=== PATIENT | female | born 1995 | race Caucasian/White ===

== ENCOUNTER 2016-12-31 05:13 | Observation (INO) ==
--- NOTE | 2016-12-31 05:24 | OB/GYN History & Physical ---
Date of Encounter: 12/31/16 Time of Encounter: 05:23 Assessment and Plan (1) False labor Current visit: Yes Status: Acute Patient began experiencing contractions after sexual intercourse which is likely the cause of her false labor. Nitrazine test was negative. Unlikely, ROM. Semen noted in the vaginal vault. Cervix dilated to 3, 20%,-3. No active labor noted. Pt reports contractions to be 5 minutes apart. We will continue to monitor for progression. Likely discharge home. Educated patient to abstain from vigorous sexual activity to prevent contractions and possible induction. Pelvic Rest. (2) Vaginal discharge during in third trimester Current visit: Yes Status: Acute Physical examination demonstrated semen in the vaginal vault. Nitralazine test was negative for ferning and no rupture of membranes at this time. Vaginal discharge likely due to semen deposited from earlier sexual activity. Pelvic rest. (3) 38 weeks gestation of Current visit: Yes Status: Acute Continue with daily vitamins, aspirin as indicated for antithrombin III deficiency. Pelvis Rest Return for planned induction on 01/06/17. History of Present Illness Chief complaint: za carmona HPI: Ms. 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 Pt reports that this morning around 03:30 she got up to use the rest room. Afterward as she was walking back to her room she felt a "gooey, slimy substance fall out of her vagina into her underwear. When she looked it was "clearish" appearing with scant blood streak. Pt reports that last sexual intercourse occurred 1 -2 hours prior. Shortly after using restroom pt began having contractions she reports 5 minutes apart. Patient is seen regularly for routine OB appointments. Pt reports she was seen yesterday by Dr Boo; membranes stripped and cervix reported to be dilated at 3. Blood type: O+ GBS negative on 12/27/16 Rubella IgG antibody positive Hepatitis B surface antigen: Nonreactive Treponema pallidum negative Varicella antibody positive Remote history of chlamydia 10/08/12. Past Med Surg Social Fam HX - Past Medical History Medical history: asthma, migraine, other (Antithrombin III deficiency) Psychiatric history: anxiety, depression - Past Surgical History Surgical History: orthopedic, other (Right ACL repair, many discectomy) - Social History Smoking Status: Current every day smoker Smokeless Tobacco Status: No Alcohol use: none Drug use: none Obstetrical History - Pregnancies : 3 Para: 1 Term: 1 : 0 Ab's: 1 Livin - History/Complications History/Complications: October 2012 patient underwent a D&C for missed . Treated for pelvic inflammatory disease June 2013. Positive for chlamydia. Medications and Allergies Aspirin 81 mg PO DAILY 07/02/15 [History] Vit/Iron Fumarate/FA [ Tablet] 1 tab PO DAILY 12/31/16 [History ] Allergies amphetamine [From Adderall] Allergy (Verified 12/31/16 05:25) Hives Carbinoxamine [From Rondec] Allergy (Verified 12/31/16 05:25) Rash cephalexin [From Keflex] Allergy (Verified 12/31/16 05:25) Swelling of Lip/Tongue/Throat dextroamphetamine [From Adderall] Allergy (Verified 12/31/16 05:25) Hives diphenhydramine [From Benadryl] Allergy (Verified 12/31/16 05:25) Agitated Penicillins [PCN] Allergy (Verified 12/31/16 05:25) Anaphylaxis pseudoephedrine [From Rondec] Allergy (Verified 12/31/16 05:25) Rash Review of System OB - Constitutional Constitutional ROS IM: no chills, no fever(s), no weakness - Nose, mouth, and throat Nose, mouth and throat: nasal congestion, other (cough productive of clear phlegm), no abnormal hearing - Breasts Breasts: no change in shape - Cardiovascular Cardiovascular: no chest pain at rest, no edema, no leg edema, no lightheadedness, no orthopnea, no palpitations, no paroxysmal nocturnal dyspnea , no pedal edema, no syncope - Respiratory Respiratory: cough - Gastrointestinal Gastrointestinal: cramping, no abdominal pain, no bloating, no hematemesis, no vomiting - Menstruation Menstruation: other (28 day cycles regular 5 days menses) - Muscloskeletal Musculoskeletal: no abnormal gait, no joint swelling, no stiffness, no tingling - Integumentary Integumentary: no bleeding lesions, no pruritus, no rash, no sores - Neurological Nerological: no abnormal gait, no abnormal hearing, no abnormal movements, no dizziness, no lack of coordination, no loss of vision, no vertigo - Psychiatric Psychiatric: abnormal sleep pattern (difficulty falling asleep), no anxiety, no depression, no memory loss - Endocrine Endocrine: no cold intolerance, no deeping of the voice, no heat intolerance - Hematologic/Lymphatic Hematologic/Lymphatic: other (Thrombophilia: Factor 3 deficiency) Exam - Constitutional Constitutional: well developed, well nourished, no acute distress, average body habitus - HEENT HEENT: EOMI, PERRL, Normocephaly, Mucus Membranes Moist - Neck Neck exam: full ROM, normal inspection, supple, trachea midline - Lungs Respiratory exam: CTAB (transmitted upper airway sounds. Pt coughing on exam. ) - Cardiovascular Cardiovascular exam: +S1, +S2 - Abdomen Abdomen: Present: bowel sounds normal, gravid, non tender - Extremities Extremities exam: full ROM, normal capillary refill, normal inspection, warm, radial pulses palpable and symetrical Deep Tendon Reflex Grade: 2+ Normal - Vulva Vulva: bilateral: normal - Vagina Vagina: Present: normal moisture, discharge (semen) - Cervix Dilation: 3 - Uterus Uterus exam: Present: normal size, normal contour - Anus/Rectum Anus/Rectum: Present: normal perianal skin Results All other labs normal.
== END 2016-12-31 09:27 | disposition home or self-care (01) ==
LOC: 1NENULAB
PROVIDERS: ADMIT Obstetrics & Gynecology; ATTEND Obstetrics & Gynecology

== ENCOUNTER 2017-01-06 06:08 | Inpatient (IN) ==
[2017-01-06] MEDS ORDERED: Naloxone 0.4 MG/ML INJ IVP PRN (06:27)
[2017-01-06] MEDS ORDERED: Famotidine 20 MG/2 ML VIAL IVP PRN (06:27)
[2017-01-06] MEDS ORDERED: Metoclopramide 10 MG/2 ML VIAL IVP PRN (06:27)
[2017-01-06] MEDS ORDERED: Ringers Solution, Lactated 1,000 ML IVC SCH (06:30)
[2017-01-06 06:46] LABS: Basophils # 0.1 K/mcL (0.0-0.2); Basophils % 0.6 %; Eosinophils # 0.1 K/mcL (0.0-0.6); Eosinophils % 0.6 %; Hematocrit 38.4 % (35.3-44.9); Immature Granulocytes % 1.6 % (0-4); Lymphocytes # 4.8 K/mcL (0.6-4.6); Lymphocytes % 24.1 %; Mean Corpuscular HGB Conc 33.9 g/dL (31.6-35.5); Mean Corpuscular Hemoglobin 29.5 pg (28.0-33.3); Mean Corpuscular Volume 87.3 fL (83.0-100.0); Mean Platelet Volume 10.2 fL (9.4-12.4); Monocytes # 0.8 K/mcL (0.0-1.3); Neutrophils # 13.7 K/mcL (1.6-8.9); Platelet Count 342 K/mcL (140-400); Red Cell Distribution Width 12.7 % (11.5-14.5); Segmented Neutrophils % 69.1 %
--- NOTE | 2017-01-06 07:36 | Anesthesia Evaluation PreOp ---
Date of Encounter: 01/06/17 Time of Encounter: 07:21 - Past History Planned Operation: vaginal del, 39wk induction. Cardiac History: HTN (questionable RN reported, denied) Pulmonary History: Asthma [employer] History: Other (anxiety, panic disorders, migraines, PTSD,) Other Medical History: Other (FACTOR 3 DEF. on baby ASA QD. no previous blood clot and denied any symptoms of SOB, lower leg swelling, very active according to patient) Anesthesia History: No Prior Anesthetic Complications (previous epidural with [facility]), Past Anesthesia : Yes (39wks) Alcohol Use: none Drug use: none Medications and Allergies Aspirin 81 mg PO DAILY 07/02/15 [History] Vit/Iron Fumarate/FA [ Tablet] 1 tab PO DAILY 12/31/16 [History ] Allergies amphetamine [From Adderall] Allergy (Verified 12/31/16 05:25) Hives Carbinoxamine [From Rondec] Allergy (Verified 12/31/16 05:25) Rash cephalexin [From Keflex] Allergy (Verified 12/31/16 05:25) Swelling of Lip/Tongue/Throat dextroamphetamine [From Adderall] Allergy (Verified 12/31/16 05:25) Hives diphenhydramine [From Benadryl] Allergy (Verified 12/31/16 05:25) Agitated Penicillins [PCN] Allergy (Verified 12/31/16 05:25) Anaphylaxis pseudoephedrine [From Rondec] Allergy (Verified 12/31/16 05:25) Rash Anesthesia Results - Labs 01/06/17 06:30 Anesthesia Exam - HEENT Pupil (Motor): Pupils equal Mallampati: II Teeth: Normal Oral Opening: Greater than 3 - [employer] LOC: Oriented [employer] Motor: Normal RUE, Normal LUE, Normal RLE, Normal LLE, Normal Face [employer] Sensory: Normal: RUE, LUE, RLE, LLE, Face - Cardiac Rhythm: Regular Murmur: None - Pulmonary Breath Sounds: bilateral Clear Respiratory Effort: Symmetrical Anesthesia Assess/Plan ASA Score: 2 Modified Mar Scale for Level of Consciousness: Cooperative, oriented, and tranquil Anesthetic Plan: General, Regional (once epidural in = recommendation for SCD's d/t Factor 3 def.) Monitoring Plan: Standard Monitors Recovery Plan: PACU
[2017-01-06] MEDS ORDERED: Epidural Premix (fent/bupiv) 110 ML EP ONE ×2 (07:46→14:41)
--- NOTE | 2017-01-06 08:04 | OB Labor Progress Note ---
Date of Encounter: 01/06/17 Time of Encounter: 08:02 Labor Progress Note - Subjective Subjective: Pt reports back pain - Cervix Cervix: 2-3/80/-2 - Heart Tones Heart Tones: RNST - Sisters Sisters: irregular uc's - Interventions Interventions: AROM clear avg amt. - Plan Plan: Plan
[2017-01-06] MEDS ORDERED: Oxytocin 20 units/ LR 1000 mL 20 UNIT/1,000 ML BAG IVC SCH ×2 (08:10→19:18)
--- NOTE | 2017-01-06 09:01 | OB/GYN History & Physical ---
Date of Encounter: 01/06/17 Time of Encounter: 08:55 Assessment and Plan (1) 39 weeks gestation of Current visit: Yes Status: Acute Induction of labor. Pt currently on pitocin with ROM. Continue current management anticipate (2) 38 weeks gestation of Current visit: No Status: Acute History of Present Illness Chief complaint: Here for IOL HPI: Ms. Campuzano is a 21 year old female Here for IOL. Pt states feels well. complicated by maternal factor III clotting disorder, pt takes baby aspirin daily. Pt also had occurrences of elevated BP in was given labetalol rx, but didnot take. BP did lower to normal without medication intervention. Pt states has asthma, but has not used inhaler in years and also has a history of bi-polar and anxiety as a teenager, but takes no medication for either. Pt states good movement, denies vaginal bleeding, or leaking of fluid prior to admission. Labs: O+, Rubella immune, GBS and serologies negative. Past Med Surg Social Fam HX - Past Medical History Medical history: asthma, migraine, other (Factor III clotting disorder) Psychiatric history: anxiety, ADHD, bipolar, depression, panic disorder - Past Surgical History Surgical History: orthopedic, other - Social History Smoking Status: Current every day smoker Packs per day: 10 Smokeless Tobacco Status: No Alcohol use: none Drug use: none - Family History Mother Adopted: No Family Member Ethnicity: Non- Living Status: Still Living Hx Family Cardiac Disorders: Yes Hx Family Respiratory Disorders: Yes Hx Family Cancer: No Hx Family GI Disorders: No Hx Family Genitourinary Disorders: No Hx Family Endocrine Disorder: No Hx Family Musculoskeletal Disorders: No Hx Family Neuromuscular Disorders: No Hx Family Neurologic Disorders: No Hx Family HEENT Disorders: No Hx Family Autoimmune Disorders: No Hx Family Reproductive Disorders: No Hx Family Psychosocial Disorders: No Hx Family Medical Disorders: No Obstetrical History - Pregnancies : 3 Para: 1 Term: 1 : 0 Ab's: 1 Livin Medications and Allergies Aspirin 81 mg PO DAILY 07/02/15 [History] Vit/Iron Fumarate/FA [ Tablet] 1 tab PO DAILY 12/31/16 [History ] Allergies amphetamine [From Adderall] Allergy (Verified 12/31/16 05:25) Hives Carbinoxamine [From Rondec] Allergy (Verified 12/31/16 05:25) Rash cephalexin [From Keflex] Allergy (Verified 12/31/16 05:25) Swelling of Lip/Tongue/Throat dextroamphetamine [From Adderall] Allergy (Verified 12/31/16 05:25) Hives diphenhydramine [From Benadryl] Allergy (Verified 12/31/16 05:25) Agitated Penicillins [PCN] Allergy (Verified 12/31/16 05:25) Anaphylaxis pseudoephedrine [From Rondec] Allergy (Verified 12/31/16 05:25) Rash Review of System OB All systems PM: reviewed and no additional remarkable complaints except as stated Exam - Constitutional Constitutional: well developed, well nourished, no acute distress, average body habitus - HEENT HEENT: Mucus Membranes Moist - Neck Neck exam: full ROM - Lungs Respiratory exam: CTAB - Cardiovascular Cardiovascular exam: RRR, +S1, +S2 - Abdomen Abdomen: Present: bowel sounds normal, gravid, non tender - Extremities Extremities exam: normal inspection Results Result Diagrams: 01/06/17 06:30 Abnormal lab results WBC 19.9 K/mcL (4.3-11.1) H 01/06/17 06:30 Neutrophils # 13.7 K/mcL (1.6-8.9) H 01/06/17 06:30 Lymphocytes # 4.8 K/mcL (0.6-4.6) H 01/06/17 06:30 All other labs normal.
--- NOTE | 2017-01-06 10:15 | Anesthesia Procedures ---
Date of Encounter: 01/06/17 Time of Encounter: 10:00 Procedures: Anesthesia - Epidural/Spinal Patient ID/Chart reviewed: Yes Patient examined: Yes OB Eval: Gestational age: 39 OB Eval: : 2 OB Eval: Hx Para: 1 OB Eval: Contractions: Non-stressed pattern Supplemental Oxygen: None/Room Air Site Prep: Aseptic Technique, Sterile prep and drape, 0.5% Chlorhexidine/Alcohol Patient position: upright Local Anesthetic: Lidocaine 1% Amount of Local Anesthetic used: 2 Touhy Needle Gauge: 18 Touhy Needle Depth (cm): 6 Catheter Depth at Skin (cm): 10 Test Dose (1.5% Lido + Epi): Volume given (mls): 3 Test Dose Result: Negative Loading Dose: Other: 12ml from solution Loading Dose Administered: Thru Catheter Infusion Med: 0.125% Bupivacaine w/ 2 mcg/ml Fentanyl Infusion Rate (mls/hr): [address]: Tegaderm, Tape Interspace Used: L3-L4 Loss of Resistance (SUNIL): Yes (saline) Blood: No CSF: No Paresthesia: No Vitals + FHT's: vss though out, FHR stable per rn's
--- NOTE | 2017-01-06 12:42 | OB Labor Progress Note ---
Date of Encounter: 01/06/17 Time of Encounter: 12:40 Labor Progress Note - Subjective Subjective: Pt comfortable with epidural. - Cervix Cervix: 5/90/-1 - Heart Tones Heart Tones: Category I - Route 7 Gateway Route 7 Gateway: 1.5-2.5 minutes - Interventions Interventions: IUPC placed - Plan Plan: Continue to monitor and titrate pitocin. Anticipate .
[2017-01-06] MEDS ORDERED: Ondansetron 4 MG/2 ML VIAL IVP PRN (16:17)
[2017-01-06] MEDS ORDERED: Mag Hydrox/Al Hydrox/Simeth 30 ML UDC PO PRN (17:57)
--- NOTE | 2017-01-06 18:55 | OB/GYN Procedure Note ---
Delivery - Delivery Date: 01/06/17 Provider: Alejandro Boo Intrapartum events: none Delivery induction: AROM, oxytocin Delivery monitor: external FHT, external uterine Anesthesia: epidural Estimated Blood Loss: 100 - Infant (s) Infant A Delivery Date: 01/06/17 Infant Delivery Time: 18:37 Presentation: vertex Position: RUFINO Gender: Male Viability: Viable Pounds: 6 Ounces: 2 at 1 minute: 8 at 5 mins: 8 Shoulder Dystocia: not encountered Cord: nuchal cord, 3 umbilical vessels, other, delivered through nuchal (Cord around body and around neck) - Repair Laceration Description: None - Complications Delivery complications: none - Disposition Mom disposition: stable in LDR [place] disposition: stable in LDR - Comments Comments: Pt s/p of liveborn male in through nuchal cord and cord aound body without incident. No laceration. Placenta delivered without incident.
[2017-01-06] MEDS ORDERED: Rho Immune Globulin 1,500 UNIT SYRINGE IM PRN (19:18)
[2017-01-06] MEDS ORDERED: Measles/Mumps/Rubella Vacc 0.5 ML VIAL SQ PRN (19:18)
[2017-01-06] MEDS: Ibuprofen 600 MG TABLET PO PRN (23:16)
[2017-01-07 04:36] LABS: Basophils # 0.1 K/mcL (0.0-0.2); Basophils % 0.4 %; Eosinophils # 0.1 K/mcL (0.0-0.6); Eosinophils % 0.7 %; Hematocrit 30.8 % (35.3-44.9); Immature Granulocytes % 1.2 % (0-4); Lymphocytes # 3.9 K/mcL (0.6-4.6); Lymphocytes % 22.1 %; Mean Corpuscular HGB Conc 33.1 g/dL (31.6-35.5); Mean Corpuscular Volume 87.5 fL (83.0-100.0); Mean Platelet Volume 10.3 fL (9.4-12.4); Monocytes % 5.5 %; Neutrophils # 12.3 K/mcL (1.6-8.9); Platelet Count 257 K/mcL (140-400); Red Blood Count 3.52 M/mcL (3.82-4.97); Red Cell Distribution Width 12.8 % (11.5-14.5); Segmented Neutrophils % 70.1 %
[2017-01-07 04:45] LABS: Hemoglobin 10.2 g/dL (11.5-15.4)
[2017-01-07] MEDS: Ibuprofen 600 MG TABLET PO PRN ×2 (05:51→13:46)
--- NOTE | 2017-01-07 08:45 | Discharge Summary ---
Date of Encounter: 01/07/17 Time of Encounter: 08:41 - Discharge Diagnosis (1) (normal spontaneous vaginal delivery) Priority: Primary Status: Acute Comments: Pt meeting milestones. - Discharge Medications Prescriptions: Ibuprofen [Motrin] 600 mg PO Q6HR PRN #60 tablet PRN Reason: Pain Docusate [Colace] 100 mg PO BID #60 capsule Home Medications: Aspirin 81 mg PO DAILY 07/02/15 [History] Vit/Iron Fumarate/FA [ Tablet] 1 tab PO DAILY 12/31/16 [History ] Docusate [Colace] 100 mg PO BID #60 capsule 01/07/17 [Rx] Ibuprofen [Motrin] 600 mg PO Q6HR PRN #60 tablet 01/07/17 [Rx] Allergies/Adverse Reactions: Allergies amphetamine [From Adderall] Allergy (Verified 12/31/16 05:25) Hives Carbinoxamine [From Rondec] Allergy (Verified 12/31/16 05:25) Rash cephalexin [From Keflex] Allergy (Verified 12/31/16 05:25) Swelling of Lip/Tongue/Throat dextroamphetamine [From Adderall] Allergy (Verified 12/31/16 05:25) Hives diphenhydramine [From Benadryl] Allergy (Verified 12/31/16 05:25) Agitated Penicillins [PCN] Allergy (Verified 12/31/16 05:25) Anaphylaxis pseudoephedrine [From Rondec] Allergy (Verified 12/31/16 05:25) Rash Data Procedures and tests throughout hospitalization: Laboratory Tests 01/06/17 01/07/17 06:30 03:59 WBC 19.9 H 17.5 H RBC 4.40 3.52 L Hgb 13.0 10.2 L D Hct 38.4 30.8 L MCV 87.3 87.5 MCH 29.5 29.0 MCHC 33.9 33.1 RDW 12.7 12.8 Plt Count 342 257 MPV 10.2 10.3 Immature Gran % 1.6 1.2 Seg Neutrophils % 69.1 70.1 Lymphocytes % 24.1 22.1 Monocytes % 4.0 5.5 Eosinophils % 0.6 0.7 Basophils % 0.6 0.4 Neutrophils # 13.7 H 12.3 H Lymphocytes # 4.8 H 3.9 Monocytes # 0.8 1.0 Eosinophils # 0.1 0.1 Basophils # 0.1 0.1 Labs on day of discharge: Labs from last 24 hours 01/07/17 03:59 WBC 17.5 H RBC 3.52 L Hgb 10.2 L D Hct 30.8 L MCV 87.5 MCH 29.0 MCHC 33.1 RDW 12.8 Plt Count 257 MPV 10.3 Immature Gran % 1.2 Seg Neutrophils % 70.1 Lymphocytes % 22.1 Monocytes % 5.5 Eosinophils % 0.7 Basophils % 0.4 Neutrophils # 12.3 H Lymphocytes # 3.9 Monocytes # 1.0 Eosinophils # 0.1 Basophils # 0.1 Date of admission: 01/06/17 06:08 Primary care physician: PCP GARTH Consults: 01/06/17 19:18 Consult to [employer] [CONS] Routine Comment: Vaginal delivery, consult needed Discharging clinician: Ira Gleason Anticipated date of discharge: 01/07/17 - Patient Status Disposition: Home, Self-Care Condition: Good Functional capacity at discharge: independent ambulation Overall status at discharge: patient is progressing back to baseline - Discharge Instructions Follow Up With: GARTH,PCP [Primary Care Provider] - Alejandro Boo MD [Partnered Physician] - - Diet and Activity Activity: increase activity as tolerated Diet: advance to your usual diet Hospital Course Reason for admission: induction of labor Delivery: Episiotomy: none Laceration: none complications: none Discharge diagnosis: IUP at term delivered [place] baby: male Hospital course: - Delivery Date: 01/06/17 Provider: Alejandro Boo Intrapartum events: none Delivery induction: AROM, oxytocin Delivery monitor: external FHT, external uterine Anesthesia: epidural Estimated Blood Loss: 100 - (s) Infant A Delivery Date: 01/06/17 Infant Delivery Time: 18:37 Presentation: vertex Position: RUFINO Gender: Male Viability: Viable Pounds: 6 Ounces: 2 at 1 minute: 8 at 5 mins: 8 Shoulder Dystocia: not encountered Cord: nuchal cord, 3 umbilical vessels, other, delivered through nuchal (Cord around body and around neck) - Repair Laceration Description: None - Complications Delivery complications: none - Disposition Mom disposition: home PPD#1 disposition: home with mother, bottle feeding Time Attestation: Total time spent providing and/or coordinating discharge services: Exam - Constitutional Vitals: Temp Pulse Resp BP Pulse Ox 97.9 F 59 16 112/70 99 01/07/17 03:45 01/07/17 03:45 01/07/17 03:45 01/07/17 03:45 01/07/17 03:45 General appearance IM: A&O X 3, pleasant, no acute distress - Respiratory Respiratory exam: Present: CTAB - Cardiovascular Cardiovascular exam IM: Present: RRR, +S1, +S2 - GI/Abdominal GI/Abdominal exam IM: soft - Rectal Rectal exam: deferred - Uterine Tone: Firm Uterus Position: At Umbilicus, Left of Midline - Extremities Exam Extremities exam IM: Present: normal inspection - Neurological Exam Neurological exam: normal gait, oriented X3 - Psychiatric Additional comments: reports good mood
[2017-01-07] MEDS: Acetaminophen 325 MG TABLET PO PRN ×2 (08:54→17:29)
[2017-01-07] MEDS ORDERED: Prenatal Vit/FA 1 EACH TABLET PO SCH (09:00)
[2017-01-07] MEDS ORDERED: Aspirin 81 MG TAB.CHEW PO SCH (09:00)
[2017-01-07 17:05] VITALS: BP 102/63
== END 2017-01-07 19:20 | disposition home or self-care (01) | DRG 560 ==
LOC: 1NENULAB 06:08 → 1NENUOBS 21:21
PROVIDERS: ADMIT Obstetrics & Gynecology; ATTEND Obstetrics & Gynecology

== ENCOUNTER 2018-06-11 20:39 | Observation (INO) ==
[2018-06-11 21:29] LABS: Amphetamine Screen,Urine Negative ng/mL (Cutoff=1000); Barbiturate Screen,Urine Negative ng/mL (Cutoff=200); Benzodiazepines Screen,Urine Negative ng/mL (Cutoff=200); Cannabinoid Screen,Urine Negative ng/mL (Cutoff = 50); Cocaine Screen,Urine Negative ng/mL (Cutoff= 300); Opiate Screen,Urine Negative ng/mL (Cutoff=300); Phencyclidine Screen,Urine Negative ng/mL (Cutoff=25)
--- NOTE | 2018-06-11 21:56 | OB/GYN Progress Note ---
Date of Encounter: 06/11/18 Time of Encounter: 21:51 - Assessment and Plan (1) 28 weeks gestation of Current Visit: Yes Status: Acute (2) Back pain affecting in third trimester Current Visit: Yes Status: Acute Pain with palpation in bilateral lower back. Suspect musculoskeletal pain. Comfort measures discussed. (3) Vaginal discharge during in third trimester Current Visit: No Status: Acute Vaginosis panel pending. Subjective - Subjective Interval history: 22 year-old presenting at 28w1d with c/o lower back pain and abdominal pain and pressure. She reports the abdominal pains were intermittent about every 10 minutes and worse with walking but they have now resolved. The back pain is constant and is in her lower back. She denies cramping, leaking, bleeding, urinary sx. She does admit that her underwear were damp when she arrived to triage. No other complaints. Good FM. Antepartum ROS: loss of fluid, movement normal, no vaginal bleeding, no contractions Objective - Vital Signs Vital Signs: Intake and Output 06/11/18 06/11/18 06/11/18 07:59 15:59 23:59 Other: Weight 71.5 kg Patient Weight 06/11/18 23:59 Weight 71.5 kg - Exam FHR: category 1 FHR comments: FHT reassuring for GA Auscultation: bilateral: normal Abdomen: Present: soft, gravid Cervical dilation: closed/thick/high Comments: SSE with negative pooling. Thick green discharge in vault. Negative CVAT. TTP in lower back
[2018-06-11 23:12] LABS: Candida DNA DETECTED (Not Detect); Gardnerella DNA Not Detected (Not Detect); Trichomonas DNA Not Detected (Not Detect)
== END 2018-06-11 23:22 | disposition home or self-care (01) ==
LOC: 1NENULAB
PROVIDERS: ADMIT Registered Nurse; ATTEND Registered Nurse

== ENCOUNTER 2018-07-30 22:21 | Observation (INO) ==
[2018-07-30] MEDS ORDERED: Ringers Solution, Lactated 1,000 ML IVC ONE (22:53)
[2018-07-30 23:14] LABS: Bilirubin,Urine Negative (Negative); Blood,Urine Small (Negative); Clarity,Urine Cloudy (Clear); Color,Urine Yellow (Yellow); Glucose,Urine (UA) Normal (Normal); Ketones,Urine Negative (Negative); Leukocyte Esterase,Urine Trace (Negative); Nitrite,Urine Positive (Negative); PH,Urine 7.5 pH Units (5.0-8.0); Protein,Urine Trace mg/dL (Neg-Trace); Specific Gravity,Urine 1.015 (1.010-1.025); Urobilinogen,Urine Normal (Normal)
[2018-07-30 23:16] LABS: Amphetamine Screen,Urine Negative ng/mL (Cutoff=1000); Barbiturate Screen,Urine Negative ng/mL (Cutoff=200); Benzodiazepines Screen,Urine Negative ng/mL (Cutoff=200); Cannabinoid Screen,Urine Negative ng/mL (Cutoff = 50); Cocaine Screen,Urine Negative ng/mL (Cutoff= 300); Opiate Screen,Urine Negative ng/mL (Cutoff=300); Phencyclidine Screen,Urine Negative ng/mL (Cutoff=25)
[2018-07-30 23:17] LABS: Bacteria,Urine Many per hpf (None-Few); Hyaline Casts,Urine None Seen per lpf (None-Few)
[2018-07-30 23:22] LABS: Basophils # 0.1 K/mcL (0.0-0.2); Basophils % 0.4 %; Eosinophils % 0.1 %; Hematocrit 32.7 % (35.3-44.9); Hemoglobin 11.3 g/dL (11.5-15.4); Immature Granulocytes % 1.8 % (0-4); Lymphocytes # 1.9 K/mcL (0.6-4.6); Lymphocytes % 11.4 %; Mean Corpuscular HGB Conc 34.6 g/dL (31.6-35.5); Mean Corpuscular Hemoglobin 30.4 pg (28.0-33.3); Mean Corpuscular Volume 87.9 fL (83.0-100.0); Mean Platelet Volume 10.2 fL (9.4-12.4); Monocytes % 5.9 %; Neutrophils # 13.2 K/mcL (1.6-8.9); Platelet Count 239 K/mcL (140-400); Red Blood Count 3.72 M/mcL (3.82-4.97); Segmented Neutrophils % 80.4 %
[2018-07-30 23:31] LABS: Squamous Epithelial Cell,Urine Few per lpf (None-Few)
--- NOTE | 2018-07-31 00:17 | Discharge Summary ---
Date of Encounter: 07/31/18 Time of Encounter: 00:19 - Discharge Diagnosis (1) 35 weeks gestation of Priority: Primary Status: Acute Comments: Follow-up with Dr. Boo as scheduled labor precautions discussed Discharge home (2) UTI (urinary tract infection) during Priority: Secondary Status: Acute Comments: Macrobid twice a day 10 days Qualifiers: Trimester: third trimester Qualified Code(s): O23.43 - Unspecified infection of urinary tract in , third trimester - Discharge Medications Prescriptions: Nitrofurantoin (BID) [Macrobid] 100 mg PO BID #20 capsule Home Medications: Aspirin Enteric Coated [Aspirin EC] 81 mg PO DAILY 05/26/18 [History] Pnv No.118/Iron Fumarate/FA [Se-Andreas 19 Chewable Tablet] 1 tab PO DAILY [History] Cyclobenzaprine [Flexeril] 1 tab PO DAILY PRN 07/30/18 [History] predniSONE [PredniSONE] 2 tab PO DAILY 07/30/18 [History] Nitrofurantoin (BID) [Macrobid] 100 mg PO BID #20 capsule 07/31/18 [Rx] Allergies/Adverse Reactions: 3 Allergy/AdvReac Type Severity Reaction Status Date / Time Amoxicillin [From Augmentin] Allergy Hives Verified 07/30/18 22:38 amphetamine [From Adderall] Allergy Hives Verified 07/30/18 22:38 Carbinoxamine [From Rondec] Allergy Rash Verified 07/30/18 22:38 cephalexin [From Keflex] Allergy Swelling Verified 07/30/18 22:38 of Lip/Tongue/Throat clavulanic acid Allergy Hives Verified 07/30/18 22:38 [From Augmentin] dextroamphetamine Allergy Hives Verified 07/30/18 22:38 [From Adderall] diphenhydramine Allergy Agitated Verified 07/30/18 22:38 [From Benadryl] naproxen [From Naprosyn] Allergy Hives Verified 07/30/18 22:38 Penicillins [PCN] Allergy Anaphylaxis Verified 07/30/18 22:38 pseudoephedrine [From Rondec] Allergy Rash Verified 07/30/18 22:38 Sulfa (Sulfonamide Allergy Hives Verified 07/30/18 22:38 Antibiotics) Data Procedures and tests throughout hospitalization: Laboratory Tests 07/30/18 07/30/18 07/30/18 22:38 22:45 23:10 WBC 16.4 H RBC 3.72 L Hgb 11.3 L Hct 32.7 L MCV 87.9 MCH 30.4 MCHC 34.6 RDW 13.0 Plt Count 239 MPV 10.2 Immature Gran % 1.8 Seg Neutrophils % 80.4 Lymphocytes % 11.4 Monocytes % 5.9 Eosinophils % 0.1 Basophils % 0.4 Neutrophils # 13.2 H Lymphocytes # 1.9 Monocytes # 1.0 Eosinophils # 0.0 Basophils # 0.1 Urine Color Yellow Urine Clarity Cloudy A Urine pH 7.5 Ur Specific Cassatt 1.015 Urine Protein Trace Urine Glucose (UA) Normal Urine Ketones Negative Urine Blood Small H Urine Nitrite Positive A Urine Bilirubin Negative Urine Urobilinogen Normal Ur Leukocyte Esterase Trace H Urine Microscopic RBC 5-15 H Urine Microscopic WBC 5-15 H Ur Squamous Epith Cells Few Urine Bacteria Many H Hyaline Casts None Seen Ur Culture Indicated? YES A Urine Opiates Screen Negative Ur Barbiturates Screen Negative Ur Phencyclidine Scrn Negative Ur Amphetamines Screen Negative U Benzodiazepines Scrn Negative Urine Cocaine Screen Negative U Marijuana (THC) Screen Negative Ur Drug Screen Interp See Below Labs on day of discharge: Labs from last 24 hours 07/30/18 07/30/18 07/30/18 23:10 22:45 22:38 WBC 16.4 H RBC 3.72 L Hgb 11.3 L Hct 32.7 L MCV 87.9 MCH 30.4 MCHC 34.6 RDW 13.0 Plt Count 239 MPV 10.2 Immature Gran % 1.8 Seg Neutrophils % 80.4 Lymphocytes % 11.4 Monocytes % 5.9 Eosinophils % 0.1 Basophils % 0.4 Neutrophils # 13.2 H Lymphocytes # 1.9 Monocytes # 1.0 Eosinophils # 0.0 Basophils # 0.1 Urine Color Yellow Urine Clarity Cloudy A Urine pH 7.5 Ur Specific Cassatt 1.015 Urine Protein Trace Urine Glucose (UA) Normal Urine Ketones Negative Urine Blood Small H Urine Nitrite Positive A Urine Bilirubin Negative Urine Urobilinogen Normal Ur Leukocyte Esterase Trace H Urine Microscopic RBC 5-15 H Urine Microscopic WBC 5-15 H Ur Squamous Epith Cells Few Urine Bacteria Many H Hyaline Casts None Seen Ur Culture Indicated? YES A Urine Opiates Screen Negative Ur Barbiturates Screen Negative Ur Phencyclidine Scrn Negative Ur Amphetamines Screen Negative U Benzodiazepines Scrn Negative Urine Cocaine Screen Negative U Marijuana (THC) Screen Negative Ur Drug Screen Interp See Below Date of admission: 07/30/18 22:21 Discharging clinician: Emerald Church Anticipated date of discharge: 07/31/18 ( ) - Patient Status Disposition: Home, Self-Care Condition: Good Functional capacity at discharge: independent ambulation Overall status at discharge: patient is progressing back to baseline - Discharge Instructions Follow Up With: Alejandro Boo MD [Partnered Physician] - - Diet and Activity Activity: increase activity as tolerated Diet: regular diet 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 She reports fever, chills, cough, and abdominal pressure. Urine studies revealed all UTI. FHR monitoring reveals tachycardia. 1L bolus administered and resolved. Patient prescribed Macrobid 100 mg twice a day 10 days. Encouraged to report to the emergency room, however patient chooses to go home. Time Attestation: Total time spent providing and/or coordinating discharge services: Time Spent: Less than 30 minutes Exam - Constitutional General appearance IM: A&O X 3 - Respiratory Respiratory exam: Present: CTAB - Cardiovascular Cardiovascular exam IM: Present: RRR, +S1, +S2 - GI/Abdominal GI/Abdominal exam IM: normal bowel sounds, no peritoneal signs - Rectal Rectal exam: deferred - Uterine Tone: Firm - Extremities Exam Extremities exam IM: Present: normal capillary refill, normal inspection, radial pulses palpable and symmetrical - Neurological Exam Neurological exam: alert, CN II-XII intact, normal gait, oriented X3, reflexes normal, no focal deficits, strengths equal and symetr throughout - VTE Reasons for not Prescribing Prophylaxis: Treatment not Indicated - Low risk for VTE
== END 2018-07-31 00:36 | disposition home or self-care (01) ==
LOC: 1NENULAB
PROVIDERS: ADMIT Advanced Practice Midwife; ATTEND Advanced Practice Midwife

== ENCOUNTER → 2018-08-19 05:11 | Observation (INO) ==
[2018-08-19 02:32] LABS: Amphetamine Screen,Urine Negative ng/mL (Cutoff=1000); Barbiturate Screen,Urine Negative ng/mL (Cutoff=200); Benzodiazepines Screen,Urine Negative ng/mL (Cutoff=200); Cannabinoid Screen,Urine Negative ng/mL (Cutoff = 50); Cocaine Screen,Urine Negative ng/mL (Cutoff= 300); Opiate Screen,Urine Negative ng/mL (Cutoff=300); Phencyclidine Screen,Urine Negative ng/mL (Cutoff=25)
[2018-08-19 04:41] LABS: Candida DNA Not Detected (Not Detect); Gardnerella DNA Not Detected (Not Detect); Trichomonas DNA Not Detected (Not Detect)
--- NOTE | 2018-08-19 08:23 | Discharge Summary ---
Date of Encounter: 08/19/18 Time of Encounter: 04:30 - Discharge Diagnosis (1) Non-stress test reactive Priority: Secondary Status: Acute Comments: FHR 125 bpm, moderate variability, 15 x 15 accelerations, no decelerations. Irregular uterine contractions noted on toco monitor. (2) 38 weeks gestation of Priority: Primary Status: Acute Comments: Admit to observation for rule out of rupture of membranes. Vaginal examination without change Induction scheduled on 08/27/2018 (3) Vaginal discharge during in third trimester Priority: Secondary Status: Acute Comments: Negative nitrazine and fern. Vaginosis panel collected with negative results. No amniotic fluid visualized in vaginal vault. - Discharge Medications Home Medications: Aspirin 08/19/18 [History] Flexeril 08/19/18 [History] One Daily Tablet 08/19/18 [History] Allergies/Adverse Reactions: Allergy/AdvReac Type Severity Reaction Status Date / Time Amoxicillin [From Augmentin] Allergy Hives Verified 08/19/18 02:18 amphetamine [From Adderall] Allergy Hives Verified 08/19/18 02:18 Carbinoxamine [From Rondec] Allergy Rash Verified 08/19/18 02:18 cephalexin [From Keflex] Allergy Swelling Verified 08/19/18 02:18 of Lip/Tongue/Throat clavulanic acid Allergy Hives Verified 08/19/18 02:18 [From Augmentin] dextroamphetamine Allergy Hives Verified 08/19/18 02:18 [From Adderall] diphenhydramine Allergy Agitated Verified 08/19/18 02:18 [From Benadryl] naproxen [From Naprosyn] Allergy Hives Verified 08/19/18 02:18 Penicillins [PCN] Allergy Anaphylaxis Verified 08/19/18 02:18 pseudoephedrine [From Rondec] Allergy Rash Verified 08/19/18 02:18 Sulfa (Sulfonamide Allergy Hives Verified 08/19/18 02:18 Antibiotics) Data Procedures and tests throughout hospitalization: Laboratory Tests 08/19/18 08/19/18 02:11 03:35 Urine Opiates Screen Negative Ur Barbiturates Screen Negative Ur Phencyclidine Scrn Negative Ur Amphetamines Screen Negative U Benzodiazepines Scrn Negative Urine Cocaine Screen Negative U Marijuana (THC) Screen Negative Ur Drug Screen Interp See Below Adriana species DNA Not Detected Gardnerella DNA Probe Not Detected Trichomonas DNA Probe Not Detected Labs on day of discharge: Labs from last 24 hours 08/19/18 08/19/18 03:35 02:11 Urine Opiates Screen Negative Ur Barbiturates Screen Negative Ur Phencyclidine Scrn Negative Ur Amphetamines Screen Negative U Benzodiazepines Scrn Negative Urine Cocaine Screen Negative U Marijuana (THC) Screen Negative Ur Drug Screen Interp See Below Adriana species DNA Not Detected Gardnerella DNA Probe Not Detected Trichomonas DNA Probe Not Detected Date of admission: 08/19/18 01:56 Discharging clinician: eMgan Meyer Anticipated date of discharge: 08/19/18 - Patient Status Disposition: Home, Self-Care Condition: Good Functional capacity at discharge: independent ambulation Overall status at discharge: patient is progressing back to baseline - Discharge Instructions Additional Instructions: LABOR AND DELIVERY DISCHARGE INSTRUCTIONS Signs and Symptoms to be Reported to your Doctor Immediately: * Sudden gush, continuous or intermittent lead of fluid from vagina (note the time of gush and color of fluid) * Onset of bright red vaginal bleeding with or without pain (if you had a vaginal exam during this visit you may notice some dark red spotting. This is normal.) * Contractions that are 5 minutes apart (from the beginning of one contraction to the beginning of the next) and last 45-60 seonds; contractions that you can no longer walk, talk or laugh through. * A change in the baby's activity. This could be an increase or decrease in activity. * Severe headache which does not go away with tylenol. * Sudden swelling in the face, hands, arms and/or legs. * Upper abdominal pain - sometimes associated with heartburn or nausea and is not relieved by Maalox, Mylanta or Tums. * Kick Counts __ One hour after a meal, lay down on one side in a quiet place. Count the number of time the baby moves during an hour. 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 She states she was in the shower when she noticed fluid leakage. She reports positive movement, denies vaginal bleeding, reports leaking clear fluid. Her has been complicated by clotting disorder a T3. Her primary OB physician is Dr. Boo. She denies any other medical problems. Per the RN examination nitrazine was negative. On sterile speculum exam large amount of white yellow mucus noted. No amniotic fluid noted in vaginal vault with patient cough. Vaginosis panel collected and sent to lab, results negative. Cervix without change since her last examination in the office 3 cm. Irregular contractions noted on monitor, reactive NST. Patient was given labor instructions and will be discharged home. To follow-up in the office as scheduled on 08/24/2018. Time Attestation: Total time spent providing and/or coordinating discharge services: Time Spent: Less than 30 minutes Exam - Constitutional General appearance IM: A&O X 3, pleasant, no acute distress, answers questions appropriately - Respiratory Respiratory exam: Present: CTAB - Cardiovascular Cardiovascular exam IM: Present: RRR, +S1, +S2 - Rectal Rectal exam: deferred - External exam: normal external exam - Extremities Exam Extremities exam IM: Present: full ROM, normal capillary refill, normal inspection - Neurological Exam Neurological exam: alert, normal gait, oriented X3, reflexes normal - VTE Reasons for not Prescribing Prophylaxis: Treatment not Indicated - Low risk for VTE
== END | disposition home or self-care (01) ==
LOC: 1NENULAB
PROVIDERS: ADMIT Registered Nurse; ATTEND Registered Nurse

== ENCOUNTER 2018-08-27 08:00 | Inpatient (IN) ==
[2018-08-27] MEDS ORDERED: *HR* Nalbuphine 10 MG/ML AMPUL IVP PRN (08:32)
[2018-08-27] MEDS ORDERED: Ondansetron 4 MG/2 ML VIAL IVP PRN (08:32)
[2018-08-27] MEDS ORDERED: Naloxone 0.4 MG/ML INJ IVP PRN (08:32)
[2018-08-27] MEDS ORDERED: Famotidine 20 MG/2 ML VIAL IVP PRN (08:32)
[2018-08-27] MEDS ORDERED: Metoclopramide 10 MG/2 ML VIAL IVP PRN (08:32)
[2018-08-27 08:57] LABS: Basophils # 0.1 K/mcL (0.0-0.2); Basophils % 0.4 %; Eosinophils # 0.1 K/mcL (0.0-0.6); Eosinophils % 0.4 %; Hematocrit 37.5 % (35.3-44.9); Hemoglobin 12.6 g/dL (11.5-15.4); Immature Granulocytes % 1.1 % (0-4); Lymphocytes % 23.5 %; Mean Corpuscular HGB Conc 33.6 g/dL (31.6-35.5); Mean Corpuscular Hemoglobin 29.9 pg (28.0-33.3); Mean Corpuscular Volume 88.9 fL (83.0-100.0); Mean Platelet Volume 10.1 fL (9.4-12.4); Monocytes # 0.9 K/mcL (0.0-1.3); Monocytes % 5.2 %; Neutrophils # 11.8 K/mcL (1.6-8.9); Platelet Count 327 K/mcL (140-400); Red Blood Count 4.22 M/mcL (3.82-4.97); Red Cell Distribution Width 13.4 % (11.5-14.5); Segmented Neutrophils % 69.4 %
[2018-08-27 08:59] LABS: Amphetamine Screen,Urine Negative ng/mL (Cutoff=1000); Barbiturate Screen,Urine Negative ng/mL (Cutoff=200); Benzodiazepines Screen,Urine Negative ng/mL (Cutoff=200); Cannabinoid Screen,Urine Negative ng/mL (Cutoff = 50); Cocaine Screen,Urine Negative ng/mL (Cutoff= 300); Opiate Screen,Urine Negative ng/mL (Cutoff=300); Phencyclidine Screen,Urine Negative ng/mL (Cutoff=25)
[2018-08-27] MEDS ORDERED: miSOPROStol 25 MCG TABLET PO PRN (09:47)
[2018-08-27] MEDS ORDERED: EPHEDrine 50 MG/ML VIAL IVP PRN (10:10)
--- NOTE | 2018-08-27 10:10 | Anesthesia Evaluation PreOp ---
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 Still takes asa 81mg qd.) Anesthesia History: No Prior Anesthetic Complications, Past Anesthesia (previous PDPH with first ) Alcohol Use: none Drug use: none Medications and Allergies Aspirin 81 mg PO DAILY 08/19/18 [History] One Daily Tablet 1 tab PO DAILY 08/19/18 [History] Allergy/AdvReac Type Severity Reaction Status Date / Time Amoxicillin [From Augmentin] Allergy Hives Verified 08/19/18 02:18 amphetamine [From Adderall] Allergy Hives Verified 08/19/18 02:18 Carbinoxamine [From Rondec] Allergy Rash Verified 08/19/18 02:18 cephalexin [From Keflex] Allergy Swelling Verified 08/19/18 02:18 of Lip/Tongue/Throat clavulanic acid Allergy Hives Verified 08/19/18 02:18 [From Augmentin] dextroamphetamine Allergy Hives Verified 08/19/18 02:18 [From Adderall] diphenhydramine Allergy Agitated Verified 08/19/18 02:18 [From Benadryl] naproxen [From Naprosyn] Allergy Hives Verified 08/19/18 02:18 Penicillins [PCN] Allergy Anaphylaxis Verified 08/19/18 02:18 pseudoephedrine [From Rondec] Allergy Rash Verified 08/19/18 02:18 tramadol [From Ultram] Allergy Rash Verified 08/27/18 08:44 - Meds/Allergy Pre-op Review Medications Reviewed: Yes Allergies Reviewed: Yes Beta Blockers on Current Med List: No Anesthesia Results - Labs 08/27/18 08:33 Anesthesia Exam O2 Sat Height 1.6 m Height 1.6 m Weight 76.657 kg Weight 169 kg NPO (# of Hours): 4 Pain Scale: 1 Pain Scale Used: Numeric (1 - 10) - HEENT Pupil (Motor): Pupils equal Mallampati: II Teeth: Normal Oral Opening: Greater than 3 - PHLEBOTOMY MANAGER LOC: Oriented PHLEBOTOMY MANAGER Motor: Normal RUE, Normal LUE, Normal RLE, Normal LLE, Normal Face PHLEBOTOMY MANAGER Sensory: Normal: RUE, LUE, RLE, LLE, Face - Cardiac Rhythm: Regular Murmur: None JVD: No Carotid Bruit: No - Pulmonary Breath Sounds: bilateral Clear Respiratory Effort: Symmetrical Anesthesia Assess/Plan ASA Score: 2 Level of consciousness: Cooperative, Oriented Anesthetic Plan: General (plan b), Epidural (plan b) Autologous Blood: Yes Monitoring Plan: Standard Monitors Recovery Plan: PACU
[2018-08-27] MEDS ORDERED: Epidural Premix (fent/bupiv) 110 ML EP SCH (10:15)
[2018-08-27] MEDS ORDERED: Ringers Solution, Lactated 1,000 ML ONE (14:44)
[2018-08-27] MEDS ORDERED: Ringers Solution, Lactated 1,000 ML IVC SCH (14:45)
--- NOTE | 2018-08-27 14:53 | OB/GYN History & Physical ---
Date of Encounter: 08/27/18 Time of Encounter: 14:47 Assessment and Plan (1) 39 weeks gestation of Current visit: Yes Status: Acute 23 y/o at 39 weeks 1 day gestational age Admit to labor and delivery GBS positive on vancomycin as allergy to penicillin Nubain for pain Epidural when desired AROM Begin pitocin as necessary Anticipate vaginal delivery OB environmental engineer scientist is Dr. Boo (2) Non-stress test reactive Current visit: Yes Status: Acute FHR 125 MOderate reactivity +15 by 15 accelerations No decels (3) MTHFR gene mutation Current visit: Yes Status: Acute Review of labs shows heterozygous for MTHFR mutation Currently on aspirin 81 mg History of Present Illness Chief complaint: Induction of labor at 39 weeks + 1 day HPI: Ms. Campuzano is a 23 year old female presenting for induction of labor. She is a patient of Dr. Boo. She is at 39 and 1 weeks gestation. complicated by MTHFR deficiency, currently on aspirin. Admits to good movement, denies contractions, vaginal bleeding or leakage of fluid. Also denies headache, nausea, vomiting, fever, chills, vision changes, chest pain, shortness of breath, epigastric pain, RUQ pain or calf pain. Blood type O+ GBS positive G/C negative HIV negative T pallidum negative Varicella immune Rubella immune Hepatitis B surface antigen unknown, will draw during this visit Past Med Surg Social Fam HX - Past Medical History Source: patient Medical history: migraine, other (Heterozygous for MTHFR mutation, currently on aspirin) Additional medical history: family hx factor 3 and 5 (paternal grandmother) but pt tested negative this Psychiatric history: anxiety, ADHD, bipolar, depression, panic disorder - Past Surgical History Surgical History: orthopedic, other Additional surgical history: acl repair, right ankle repair, right arm reset, t&a, tubes in ears, D&C - Social History Smoking Status: Current every day smoker Packs per day: 0.5 Smokeless Tobacco Status: No Alcohol use: none Drug use: none Recent Out of Country Travel Within the Last 8 Weeks: No Exposure or Possible Exposure to Illness During Travel: No - Family History Mother Adopted: No Family Member Ethnicity: Non- Living Status: Still Living Hx Family Cardiac Disorders: Yes (HTN) Hx Family Respiratory Disorders: No Hx Family Cancer: No Hx Family GI Disorders: No Hx Family Endocrine Disorder: Yes (diabetes) Hx Family Neuromuscular Disorders: No Hx Family Neurologic Disorders: No Hx Family HEENT Disorders: No Hx Family Autoimmune Disorders: No Obstetrical History - Pregnancies : 5 Para: 2 Term: 2 : 0 Ab's: 2 Livin - History/Complications History/Complications: 1 was spontaneous at 8 weeks 2 was vaginal delivery 3 was vaginal delivery 4 was tubal Medications and Allergies Aspirin 81 mg PO DAILY 08/19/18 [History] One Daily Tablet 1 tab PO DAILY 08/19/18 [History] Allergy/AdvReac Type Severity Reaction Status Date / Time Amoxicillin [From Augmentin] Allergy Hives Verified 08/19/18 02:18 amphetamine [From Adderall] Allergy Hives Verified 08/19/18 02:18 Carbinoxamine [From Rondec] Allergy Rash Verified 08/19/18 02:18 cephalexin [From Keflex] Allergy Swelling Verified 08/19/18 02:18 of Lip/Tongue/Throat clavulanic acid Allergy Hives Verified 08/19/18 02:18 [From Augmentin] dextroamphetamine Allergy Hives Verified 08/19/18 02:18 [From Adderall] diphenhydramine Allergy Agitated Verified 08/19/18 02:18 [From Benadryl] naproxen [From Naprosyn] Allergy Hives Verified 08/19/18 02:18 Penicillins [PCN] Allergy Anaphylaxis Verified 08/19/18 02:18 pseudoephedrine [From Rondec] Allergy Rash Verified 08/19/18 02:18 tramadol [From Ultram] Allergy Rash Verified 08/27/18 08:44 Review of System OB All systems PM: reviewed and no additional remarkable complaints except as stated Exam - Constitutional Constitutional: well developed, well nourished, no acute distress, average body habitus - HEENT HEENT: Normocephaly, Mucus Membranes Moist - Neck Neck exam: full ROM, trachea midline - Lungs Respiratory exam: CTAB - Cardiovascular Cardiovascular exam: RRR, +S1, +S2 - Abdomen Abdomen: Present: bowel sounds normal, gravid - Extremities Extremities exam: normal inspection, pedal edema Deep Tendon Reflex Grade: 2+ Normal - Vagina Vagina: Present: normal moisture - Cervix Dilation: 4 Effacement: 60 Station: -1 - Uterus Uterus exam: Present: normal size, normal contour Results Result Diagrams: 08/27/18 08:33 Abnormal lab results WBC 17.0 K/mcL (4.3-11.1) H 08/27/18 08:33 Neutrophils # 11.8 K/mcL (1.6-8.9) H 08/27/18 08:33 All other labs normal. - VTE Reasons for not Prescribing Prophylaxis: Treatment not Indicated - Low risk for VTE
--- NOTE | 2018-08-27 15:03 | OB Labor Progress Note ---
Date of Encounter: 08/27/18 Time of Encounter: 14:36 Labor Progress Note - Subjective Subjective: Patient resting in bed without complaint. Multiple family members at bedside for support. Patient plans an epidural for pain management. - Vital Signs Vital Signs: WNL Afebrile - Cervix Cervix: 4/80/-2 - Heart Tones Heart Tones: 135 bpm, moderate variability, +15x15 accels, no decelerations. - Whitlock Whitlock: Irregular - Interventions Interventions: SVE AROM for large amount of clear fluid. - Plan Plan: Continue labor management Begin Pitocin if needed to augment labor. Epidural when patient desires. Anticipate
[2018-08-27] MEDS ORDERED: Lidocaine -MPF 1% 5 ML AMPUL ONE (15:55)
--- NOTE | 2018-08-27 16:25 | Anesthesia Procedures ---
Addendum entered and electronically signed by John George CRNA 08/28/18 00:18: Delivery Date: 08/27/18 Infant Delivery Time: 22:14 Original Note: Date of Encounter: 08/27/18 Time of Encounter: 16:23 Procedures: Anesthesia - Epidural/Spinal Patient ID/Chart reviewed: Yes Patient examined: Yes OB Eval: Gestational age: 39.1 OB Eval: : 5 OB Eval: Hx Para: 2 OB Eval: Dilated at (cm): 4 OB Eval: Contractions: Non-stressed pattern Consent Obtained: Yes Supplemental Oxygen: None/Room Air Site Prep: Aseptic Technique, Sterile prep and drape, Povidone-Iodine 1% Patient position: upright Local Anesthetic: Lidocaine 1% Amount of Local Anesthetic used: 3 Touhy Needle Gauge: 18 Touhy Needle Depth (cm): 6 Catheter Depth at Skin (cm): 20 Test Dose (1.5% Lido + Epi): Volume given (mls): 5 Test Dose Result: Negative Loading Dose: Other: 10mls of epidural pharm bag premix solution Loading Dose Administered: Thru Catheter Infusion Med: 0.125% Bupivacaine w/ 2 mcg/ml Fentanyl Infusion Rate (mls/hr): 15 ([id number]) Catheter Secured in Place: Tegaderm, Tape Interspace Used: L4-L5 Loss of Resistance (SUNIL): Yes Blood: No CSF: No Paresthesia: No Procedure: pt tolerated procedure well. no complications. vss. fhr stable.
[2018-08-27] MEDS ORDERED: Oxytocin 20 units/ LR 1000 mL 20 UNIT/1,000 ML BAG IVC ONE (18:09)
[2018-08-27] MEDS ORDERED: Oxytocin 20 units/ LR 1000 mL 20 UNIT/1,000 ML BAG IVC SCH (18:15)
--- NOTE | 2018-08-27 22:56 | OB/GYN Procedure Note ---
Delivery - Delivery Date: 08/27/18 Provider: Alejandro Boo Intrapartum events: none Delivery induction: AROM Delivery augmentation: pitocin - (s) Infant A Delivery Date: 08/27/18 Infant Delivery Time: 22:14 Presentation: vertex Position: RUFINO Gender: Male Viability: Viable Weight Gram: 3.045 kg at 1 minute: 8 at 5 mins: 9 Shoulder Dystocia: not encountered Specimens collected: cord blood Cord: 3 umbilical vessels - Repair Episiotomy: none Laceration Description: Perineal - 2nd Degree - Complications Delivery complications: none - Disposition Mom disposition: stable in LDR disposition: stable in LDR - Comments Comments: Patient is status post normal spontaneous vaginal delivery of liveborn male weighing 6 lbs. 11 oz. from left occiput anterior presentation. Apgars returned be 8 at 1 minute and 9 at 5 minutes. With spontaneous delivery normal placenta with three-vessel cord. There is no complications with delivery specifically no nuchal cord and no shoulder dystocia. There is secondary laceration was repaired with 3-0 Vicryl. In the Of the Muscle There Was Very Small Tear Which Was Repaired with a Single 2-0 Vicryl Suture in Essence I Was Really Just a Second-Degree Laceration. Estimated Blood Loss 200 ML, Mother and Infant Recovered in Labor and Delivery.
[2018-08-28] MEDS ORDERED: Measles/Mumps/Rubella Vacc 0.5 ML VIAL SQ PRN (00:36)
[2018-08-28] MEDS ORDERED: Oxytocin 20 units/ LR 1000 mL 20 UNIT/1,000 ML BAG IVC SCH (00:36)
[2018-08-28] MEDS ORDERED: Acetaminophen 325 MG TABLET PO PRN (00:36)
[2018-08-28] MEDS ORDERED: Rho Immune Globulin 1,500 UNIT SYRINGE IM PRN (00:36)
[2018-08-28] MEDS ORDERED: Benzocaine/Menthol 56 GM AEROSOL SPRAY TP PRN (01:17)
[2018-08-28] MEDS: Ibuprofen 600 MG TABLET PO PRN ×3 (01:29→19:49)
[2018-08-28 06:31] LABS: Basophils # 0.1 K/mcL (0.0-0.2); Basophils % 0.3 %; Eosinophils # 0.1 K/mcL (0.0-0.6); Eosinophils % 0.5 %; Hematocrit 30.4 % (35.3-44.9); Immature Granulocytes % 0.7 % (0-4); Lymphocytes # 3.3 K/mcL (0.6-4.6); Lymphocytes % 20.7 %; Mean Corpuscular HGB Conc 32.9 g/dL (31.6-35.5); Mean Corpuscular Hemoglobin 29.5 pg (28.0-33.3); Mean Corpuscular Volume 89.7 fL (83.0-100.0); Monocytes # 0.8 K/mcL (0.0-1.3); Monocytes % 4.8 %; Neutrophils # 11.6 K/mcL (1.6-8.9); Platelet Count 240 K/mcL (140-400); Red Blood Count 3.39 M/mcL (3.82-4.97); Red Cell Distribution Width 13.3 % (11.5-14.5)
[2018-08-28] MEDS: Aspirin 81 MG TAB.CHEW PO SCH (09:15)
[2018-08-28] MEDS: Prenatal Vit/FA 1 EACH TABLET PO SCH (09:15)
--- NOTE | 2018-08-28 10:37 | OB/GYN Progress Note ---
Date of Encounter: 08/29/18 Time of Encounter: 10:34 - Assessment and Plan (1) 39 weeks gestation of Current Visit: Yes Status: Acute 23 y/o s/p day 1 Delivered at 39 weeks 1 day weeks Healthy male 3.045 kg with apgars 8/9, bottle feeding and doing well Meeting day 1 milestones Pain well controlled Lochia light Mood is appropriate Continue routine care Planning tubal ligation at 6 weeks Anticipate discharge tomorrow (2) Status post vaginal delivery Current Visit: Yes Status: Acute Status post day 1 2nd degree perineal laceration was repaired Lochia light and pain controlled (3) anemia Current Visit: Yes Status: Acute Hgb 10, Hct 30.4 Continue ferrous sulfate (4) MTHFR gene mutation Current Visit: Yes Status: Acute Review of labs shows heterozygous for MTHFR mutation Continue aspirin 81 mg Subjective - Subjective Principal diagnosis: Status post vaginal delivery at 39 and 1 weeks Interval history: 23 yr old female status post day 1 Doing well, states that pain is well controlled Ambulating without dizziness Normal appetite Voiding well, no dysuria. Passing flatus Light lochia Mood is appropriate Healthy male 3.045 kg, 8/9 doing well with formula feeding Denies nausea, vomiting, fever, chills, dizziness, chest pain, shortness of breath, abdominal pain, dysuria, or calf pain. Patient reports: appetite normal, voiding normally, pain well controlled, ambulating normally : doing well, bottle feeding Objective - Latest Vital Signs Latest vital signs: Vital Signs Temp Pulse Resp BP Pulse Ox 08/28/18 10:11 98.0 F 61 14 115/72 96 08/28/18 08:08 16 08/28/18 07:55 97.5 F L 48 12 101/60 96 08/28/18 03:07 98.3 F 65 16 112/62 96 08/28/18 02:25 98.2 F 60 16 108/63 96 08/28/18 02:00 98.1 F 66 18 119/68 98 08/28/18 01:00 98.1 F 59 14 113/81 98 Intake and Output 08/27/18 08/28/18 08/28/18 23:59 07:59 15:59 Intake Total 300 / 300 720 / 720 Output Total 600 / 600 500 / 500 320 / 320 Balance -600 / -600 -200 / -200 400 / 400 Intake: IV Fluids 300 / 300 Pitocin 20 unit In 1,000 ml @ 300 / 300 125 mls/hr IVC .Q8H LAMBERT Rx#: [id number] Oral 0 / 0 720 / 720 Output: Urine 500 / 500 320 / 320 Estimated Blood Loss 200 / 200 Catheter 400 / 400 Other: Meal Breakfast Percent of Meal Consumed 70% # Voids 1 Weight 72 kg Patient Weight 08/28/18 23:59 Weight 72 kg - Exam Lungs: bilateral: normal Chest: Normal S1, Normal S2 Extremities: Present: normal, edema. Absent: tenderness Abdomen: Present: normal appearance, soft Uterus: Present: normal, firm Uterus Position: At Umbilicus - Labs Labs: Laboratory Results - last 24 hr 08/27/18 08/28/18 15:17 06:08 WBC 15.9 H RBC 3.39 L Hgb 10.0 L D Hct 30.4 L MCV 89.7 MCH 29.5 MCHC 32.9 RDW 13.3 Plt Count 240 MPV 10.0 Immature Gran % 0.7 Seg Neutrophils % 73.0 Lymphocytes % 20.7 Monocytes % 4.8 Eosinophils % 0.5 Basophils % 0.3 Neutrophils # 11.6 H Lymphocytes # 3.3 Monocytes # 0.8 Eosinophils # 0.1 Basophils # 0.1 Hep Bs Antigen Nonreactive - Attending Attestation I have seen this patient and agree with assessment. Lawrence Church CNM
[2018-08-29] MEDS: Ibuprofen 600 MG TABLET PO PRN (05:56)
[2018-08-29 07:51] VITALS: BP 98/65
[2018-08-29] MEDS: Prenatal Vit/FA 1 EACH TABLET PO SCH (08:31)
[2018-08-29] MEDS: Aspirin 81 MG TAB.CHEW PO SCH (08:32)
--- NOTE | 2018-08-29 09:25 | Discharge Summary ---
Date of Encounter: 08/29/18 Time of Encounter: 09:12 - Discharge Diagnosis (1) Second degree perineal laceration during delivery Priority: Secondary Status: Acute Comments: Pain well-controlled with Motrin. Continue Dermoplast as needed. (2) MTHFR gene mutation Priority: Secondary Status: Acute Comments: Continue 81 mg of aspirin daily. Patient with family history of blood clots. Follow-up as indicated. Discussed this plan of care with Dr. Boo. (3) Status post vaginal delivery Priority: Primary Status: Acute Comments: Meeting day 2 milestones. Voiding without difficulty, lochia light, no bowel movement since delivery, tolerating regular diet. Follow-up in 4 weeks as scheduled (4) anemia Priority: Secondary Status: Acute Comments: Patient asymptomatic with hemoglobin of 10.0 this morning Will send patient home with plan prescription to take daily. - Discharge Medications Prescriptions: Ibuprofen [Motrin] 600 mg PO Q6HR PRN #60 tablet PRN Reason: Cramping Aspirin [Adult Aspirin Regimen] 81 mg PO DAILY #30 tablet. Ferrous Sulfate 325 mg PO DAILY #30 tablet Home Medications: Aspirin 81 mg PO DAILY 08/19/18 [History] One Daily Tablet 1 tab PO DAILY 08/19/18 [History] Acetaminophen [Tylenol] 650 mg PO Q6HR PRN tablet 08/29/18 [Rx] Aspirin [Adult Aspirin Regimen] 81 mg PO DAILY #30 tablet. 08/29/18 [Rx] Benzocaine/Menthol [place] [Dermoplast [place]] 1 appl TP QID PRN aerosol 08/29/18 [Rx] Docusate [Colace] 100 mg PO BID capsule 08/29/18 [Rx] Ferrous Sulfate 325 mg PO DAILY #30 tablet 08/29/18 [Rx] Ibuprofen [Motrin] 600 mg PO Q6HR PRN #60 tablet 08/29/18 [Rx] Allergies/Adverse Reactions: Allergy/AdvReac Type Severity Reaction Status Date / Time Amoxicillin [From Augmentin] Allergy Hives Verified 08/19/18 02:18 amphetamine [From Adderall] Allergy Hives Verified 08/19/18 02:18 Carbinoxamine [From Rondec] Allergy Rash Verified 08/19/18 02:18 cephalexin [From Keflex] Allergy Swelling Verified 08/19/18 02:18 of Lip/Tongue/Throat clavulanic acid Allergy Hives Verified 08/19/18 02:18 [From Augmentin] dextroamphetamine Allergy Hives Verified 08/19/18 02:18 [From Adderall] diphenhydramine Allergy Agitated Verified 08/19/18 02:18 [From Benadryl] naproxen [From Naprosyn] Allergy Hives Verified 08/19/18 02:18 Penicillins [PCN] Allergy Anaphylaxis Verified 08/19/18 02:18 pseudoephedrine [From Rondec] Allergy Rash Verified 08/19/18 02:18 tramadol [From Ultram] Allergy Rash Verified 08/27/18 08:44 Data Procedures and tests throughout hospitalization: Laboratory Tests 08/27/18 08/27/18 08/27/18 08:33 08:40 15:17 WBC 17.0 H RBC 4.22 Hgb 12.6 Hct 37.5 MCV 88.9 MCH 29.9 MCHC 33.6 RDW 13.4 Plt Count 327 MPV 10.1 Immature Gran % 1.1 Seg Neutrophils % 69.4 Lymphocytes % 23.5 Monocytes % 5.2 Eosinophils % 0.4 Basophils % 0.4 Neutrophils # 11.8 H Lymphocytes # 4.0 Monocytes # 0.9 Eosinophils # 0.1 Basophils # 0.1 Urine Opiates Screen Negative Ur Barbiturates Screen Negative Ur Phencyclidine Scrn Negative Ur Amphetamines Screen Negative U Benzodiazepines Scrn Negative Urine Cocaine Screen Negative U Marijuana (THC) Screen Negative Ur Drug Screen Interp See Below Hep Bs Antigen Nonreactive 08/28/18 06:08 WBC 15.9 H RBC 3.39 L Hgb 10.0 L D Hct 30.4 L MCV 89.7 MCH 29.5 MCHC 32.9 RDW 13.3 Plt Count 240 MPV 10.0 Immature Gran % 0.7 Seg Neutrophils % 73.0 Lymphocytes % 20.7 Monocytes % 4.8 Eosinophils % 0.5 Basophils % 0.3 Neutrophils # 11.6 H Lymphocytes # 3.3 Monocytes # 0.8 Eosinophils # 0.1 Basophils # 0.1 Urine Opiates Screen Ur Barbiturates Screen Ur Phencyclidine Scrn Ur Amphetamines Screen U Benzodiazepines Scrn Urine Cocaine Screen U Marijuana (THC) Screen Ur Drug Screen Interp Hep Bs Antigen Date of admission: 08/27/18 08:07 Primary care physician: Marian Woods CNP Consults: 08/28/18 00:36 Consult to Director Orange [CONS] Routine Comment: Vaginal delivery, consult needed Discharging clinician: Megan Meyer Anticipated date of discharge: 08/29/18 - Patient Status Disposition: Home, Self-Care Condition: Good Functional capacity at discharge: independent ambulation Overall status at discharge: patient is progressing back to baseline - Discharge Instructions Follow Up With: Marian Woods CNP [Primary Care Provider] - Alejandro Boo MD [Partnered Physician] - - Diet and Activity Activity: resume usual activities as tolerated Diet: regular diet Hospital Course Reason for admission: induction of labor Delivery: Episiotomy: none Laceration: 2nd degree Other procedures: none complications: perineal laceration Discharge diagnosis: IUP at term delivered [place] baby: male Hospital course: Patient meeting day 2 milestones. Playing without difficulty, lochia light, no bowel movement since delivery, tolerating regular diet, pain well-controlled with Motrin. Discharge home today Delivery Date: 08/27/18 Provider: Alejandro Boo Intrapartum events: none Delivery induction: AROM Delivery augmentation: pitocin - Infant (s) A Infant Delivery Date: 08/27/18 Infant Delivery Time: 22:14 Presentation: vertex Position: RUFINO Gender: Male Viability: Viable Weight Gram: 3.045 kg at 1 minute: 8 at 5 mins: 9 Shoulder Dystocia: not encountered Specimens collected: cord blood Cord: 3 umbilical vessels - Repair Episiotomy: none Laceration Description: Perineal - 2nd Degree - Complications Delivery complications: none - Disposition Mom disposition: stable in LDR [place] disposition: stable in LDR Time Attestation: Total time spent providing and/or coordinating discharge services: Time Spent: Less than 30 minutes Exam - Constitutional Vitals: Temp Pulse Resp BP Pulse Ox 97.7 F 64 16 98/65 94 08/29/18 07:50 08/29/18 07:50 08/29/18 07:50 08/29/18 07:50 08/29/18 07:50 General appearance IM: A&O X 3, pleasant, no acute distress, answers questions appropriately - Respiratory Respiratory exam: Present: CTAB - Cardiovascular Cardiovascular exam IM: Present: RRR, +S1, +S2 - GI/Abdominal GI/Abdominal exam IM: normal bowel sounds, soft - Rectal Rectal exam: deferred - Uterine Tone: Firm Uterus Position: 2 Fingers Below Umbilicus - Extremities Exam Extremities exam IM: Present: full ROM, normal capillary refill, normal inspection - Neurological Exam Neurological exam: alert, normal gait, oriented X3
== END 2018-08-29 13:45 | disposition home or self-care (01) | DRG 560 ==
LOC: 1NENULAB 08:07 → 1NENUOBS 08-28 01:55
PROVIDERS: ADMIT Obstetrics & Gynecology; ATTEND Obstetrics & Gynecology